=== PATIENT | male | born 1980 | race Two or more races ===

== ENCOUNTER 2018-12-26 20:14 | Emergency (ER) | payer MEDICAID ==
[~2018-12-26] VITALS: Ht 172.7 cm; Wt 88.5 kg
[2018-12-26] MEDS ORDERED: IBUPROFEN 600 MG TAB PO ONE (20:30)
[2018-12-26 20:31] VITALS: BP 168/111
== END 2018-12-26 22:22 | disposition home or self-care (01) ==
LOC: ER 20:16
DX: M25.512 Pain in left shoulder (principal); B02.9 Zoster without complications
CPT/HCPCS: 73030; 99283; J7030

== ENCOUNTER 2019-10-07 04:46 | Emergency (ER) | payer MEDICAID | END 2019-10-07 05:59 | disposition left against medical advice (07) | LOC: ER 04:46 | DX: M79.89 Other specified soft tissue disorders (principal); Z53.21 Procedure and treatment not carried out due to patient leaving prior to being seen by health care provider ==